=== PATIENT | female | born 1940 | race Caucasian/White ===

== ENCOUNTER → 2017-10-26 | Day surgery (SDC) | payer MEDICARE, BC, OTHER ==
[~2017-10-26] MED LIST: NS 1,000 ML IV; PROPOFOL 200 MG/20 ML VIAL As Ordered
== END | disposition home or self-care (01) ==
LOC: M OPP 07:01
DX: Z12.11 Encounter for screening for malignant neoplasm of colon (principal); D12.0 Benign neoplasm of cecum; K57.30 Diverticulosis of large intestine without perforation or abscess without bleeding; K21.9 Gastro-esophageal reflux disease without esophagitis; M19.90 Unspecified osteoarthritis, unspecified site; H40.9 Unspecified glaucoma; E66.9 Obesity, unspecified; Z78.0 Asymptomatic menopausal state; Z88.8 Allergy status to other drugs, medicaments and biological substances; Z79.82 Long term (current) use of aspirin; Z79.899 Other long term (current) drug therapy; Z83.71 Family history of colonic polyps; Z80.3 Family history of malignant neoplasm of breast
CPT/HCPCS: 45385

== ENCOUNTER 2019-02-14 06:58 | Day surgery (SDC) | payer MEDICARE, BC, OTHER ==
[~2019-02-14] VITALS: Ht 147.3 cm; Wt 68.5 kg
[~2019-02-14 06:58] MED LIST changes: +ASPI81TA26 PO; +BIMA01SOL OU; +CALC1TAB26 PO; +FISH PB; +FLUTISP; +MM S100C PO; -NS 1,000 ML IV; +NS 1,000 ML IV ONE; +OMEG1CAP16 PO; -PROPOFOL 200 MG/20 ML VIAL As Ordered; +RANI150T PO; +SYST1SOL4 OU; +SYSTSOL14 OU; +TACLOIN4 TOP; +TIMO0.5S29 OU; +VITA100067 PO; +VITA500079 PO; +[UNRECOGNIZED DRUG - OTHER] PB
[2019-02-14] MEDS ORDERED: PROPOFOL 200 MG/20 ML VIAL As Ordered ONE ×2 (08:01→08:10)
--- NOTE | 2019-02-14 08:31 | ROOR ---
Patient Name: Rebecca Blankenship Procedure Date: 02/14/2019 8:01 AM Date of : 1940 Age: 78 Room: [facility] Gender: Female Note Status: Finalized Procedure: Colonoscopy Indications: High risk colon cancer surveillance: Personal history of colonic polyps Providers: Prieto Barrios Jr, MD Referring MD: Leif Finley MD Requesting Provider: Medicines: Propofol per Anesthesia Complications: No immediate complications. Procedure: Pre-Anesthesia Assessment: - Prior to the procedure, a History and Physical was performed, and patient medications and allergies were reviewed. The patient is competent. The risks and benefits of the procedure and the sedation options and risks were discussed with the patient. All questions were answered and informed consent was obtained. Patient identification and proposed procedure were verified by the physician and the nurse in the pre-procedure area and in the procedure room. Mental Status Examination: alert and oriented. Airway Examination: normal oropharyngeal airway and neck mobility. Respiratory Examination: clear to auscultation. CV Examination: normal. ASA Grade Assessment: II - A patient with mild systemic disease. After reviewing the risks and benefits, the patient was deemed in satisfactory condition to undergo the procedure. The anesthesia plan was to use moderate sedation / analgesia (conscious sedation). Immediately prior to administration of medications, the patient was re-assessed for adequacy to receive sedatives. The heart rate, respiratory rate, oxygen saturations, blood pressure, adequacy of pulmonary ventilation, and response to care were monitored throughout the procedure. The physical status of the patient was re-assessed after the procedure. The Colonoscope was introduced through the anus and advanced to the cecum, identified by appendiceal orifice and ileocecal valve. The colonoscopy was performed without difficulty. The patient tolerated the procedure well. The quality of the bowel preparation was adequate. Findings: The rectum and transverse colon appeared normal. A few small and large-mouthed diverticula were found in the descending colon, transverse colon and ascending colon. Many small and large-mouthed diverticula were found in the sigmoid colon. A medium polyp was found in the cecum. The polyp was flat. The polyp was removed with a piecemeal technique using a cold snare. Resection was complete, but the polyp tissue was only partially retrieved. To close a defect after polypectomy, two hemostatic clips were successfully placed. There was no bleeding at the end of the procedure. Impression: - The rectum and transverse colon are normal. - Diverticulosis in the descending colon, in the transverse colon and in the ascending colon. - Diverticulosis in the sigmoid colon. - One medium polyp in the cecum, removed piecemeal using a cold snare. Complete resection. Partial retrieval. Clips were placed. Recommendation: - Discharge patient to home (ambulatory). Prieto Barrios MD Prieto Barrios Jr, MD 02/14/2019 8:31:31 AM Electronically signed by Prieto Barrios Jr, MD Number of Addenda: 0 Note Initiated On: 02/14/2019 8:01 AM Estimated Blood Loss: Estimated blood loss: none.
[2019-02-14 09:00] VITALS: BP 98/50
== END 2019-02-14 09:08 | disposition home or self-care (01) ==
LOC: M OPP 06:58
PROVIDERS: ATTEND Surgery
DX: Z86.010 Personal history of colon polyps (principal); K57.30 Diverticulosis of large intestine without perforation or abscess without bleeding; D12.0 Benign neoplasm of cecum; E78.00 Pure hypercholesterolemia, unspecified; R12 Heartburn; Z79.899 Other long term (current) drug therapy; Z88.0 Allergy status to penicillin; Z88.8 Allergy status to other drugs, medicaments and biological substances

== ENCOUNTER → 2021-04-28 | Outpatient (CLI) | payer MEDICARE, BC, OTHER ==
[~2021-04-28] MED LIST changes: -NS 1,000 ML IV ONE
--- NOTE | 2021-04-28 12:22 | REP ---
INDICATION: LT KIDNEY CYSTS. COMPARISON: 04/09/2020 which showed a 3.8 x 3.9 x 4.2 cm sized left renal cyst TECHNIQUE: Real-time sonographic evaluation of the kidneys with Doppler FINDINGS: Multiple ultrasonographic images of the right kidney show the right kidney to measure 9.6 x 4.7 x 3.7 cm. The renal cortical echotexture is unremarkable. There are no masses. There is good corticomedullary differentiation. There is no hydronephrosis. There are no perinephric fluid collections. Multiple ultrasonographic images of the left kidney show the left kidney to measure 10.9 x 5.3 x 4.7 cm. The renal cortical echotexture is unremarkable. There are no solid masses. This is seen previously today measures 4.6 x 4 x 4.3 cm. There is good corticomedullary differentiation. There is no hydronephrosis. There are no perinephric fluid collections. IMPRESSION: Left renal cyst as described above. <Electronically signed by Syed Redmond > 04/28/21 [id number]
== END ==
LOC: M RAD 11:06
PROVIDERS: ATTEND Family Medicine
DX: D41.02 Neoplasm of uncertain behavior of left kidney (principal)

== ENCOUNTER → 2022-05-06 | Outpatient (CLI) | payer MEDICARE, BC, OTHER | LOC: M WUC 08:38 | PROVIDERS: ATTEND Student in an Organized Health Care Education/Training Program | DX: M25.571 Pain in right ankle and joints of right foot (principal); M77.31 Calcaneal spur, right foot ==

== ENCOUNTER → 2022-06-19 | Outpatient (CLI) | payer MEDICARE, BC, OTHER ==
[~2022-06-19] MED LIST changes: +ALLE24TA7 PO; +MELO7.5T35 PO; +VIT1TAB.8 PO; +VITA500054 PO; +VITA500C24 PO
== END ==
LOC: M LABSMTC 09:25
PROVIDERS: ATTEND Anesthesiology
DX: Z01.812 Encounter for preprocedural laboratory examination (principal); Z11.52 Encounter for screening for COVID-19

== ENCOUNTER 2022-06-23 06:41 | Day surgery (SDC) | payer MEDICARE, BC, OTHER ==
[~2022-06-23] VITALS: Ht 147.3 cm; Wt 64.9 kg
[~2022-06-23 06:41] MED LIST changes: +NS 1,000 ML IV ONE
[2022-06-23] MEDS ORDERED: propofoL 200 MG/20 ML VIAL As Ordered ONE ×2 (06:59→07:49)
[2022-06-23] MEDS ORDERED: ePHEDrine SULFATE 25 MG/5 ML(5MG/ML) SYRINGE As Ordered ONE (07:49)
[2022-06-23 08:25] VITALS: BP 102/55
== END 2022-06-23 08:24 | disposition home or self-care (01) ==
LOC: M OPP 06:41
PROVIDERS: ATTEND Surgery
DX: Z86.010 Personal history of colon polyps (principal); D12.6 Benign neoplasm of colon, unspecified; K57.30 Diverticulosis of large intestine without perforation or abscess without bleeding; Z79.52 Long term (current) use of systemic steroids; Z79.899 Other long term (current) drug therapy; Z88.0 Allergy status to penicillin; Z88.2 Allergy status to sulfonamides; E78.5 Hyperlipidemia, unspecified

== ENCOUNTER → 2023-03-06 | Outpatient (CLI) | payer MEDICARE, BC, OTHER ==
[~2023-03-06] MED LIST changes: +FLUT50SP17; -FLUTISP; -NS 1,000 ML IV ONE; +TIMO0.5S20 OU; -TIMO0.5S29 OU
== END ==
LOC: M RAD 08:47
PROVIDERS: ATTEND Family Medicine
DX: R10.11 Right upper quadrant pain (principal)

== ENCOUNTER → 2023-12-13 | Outpatient (CLI) | payer MEDICARE, BC ==
[~2023-12-13] MED LIST changes: -FLUT50SP17; +FLUTISP
== END ==
LOC: M PLAIMG 07:37
PROVIDERS: ATTEND Family Medicine
DX: R01.1 Cardiac murmur, unspecified (principal); I08.3 Combined rheumatic disorders of mitral, aortic and tricuspid valves

== ENCOUNTER → 2024-09-23 | Outpatient (REF) | payer MEDICARE, BC ==
[2024-09-27 21:17] LABS: FACTOR V111 ACTIVITY, CLOTTING 105 % normal (50-180); FACTOR VIII APTT 27 sec (23-32); RISTOCETIN COFACTOR 143 % normal (42-200); VW FACTOR ANTIGEN 115 % (50-217)
== END ==
LOC: M LAB REF 11:57
PROVIDERS: ATTEND Family Medicine
DX: D68.00 Von Willebrand disease, unspecified (principal)

== ENCOUNTER → 2025-02-27 | Outpatient (CLI) | payer MEDICARE, BC ==
[2025-02-27 14:57] LABS: BASO # 0.1 10^3/uL (0.0-0.2); BASO % 0.9 % (0.0-1.0); EOS # 0.3 10^3/uL (0.0-0.5); EOS % 3.4 % (0.0-3.0); LYMPH # 1.6 10^3/uL (1.5-5.0); LYMPH % 19.3 % (24.0-44.0); MONO # 0.5 10^3/uL (0.0-0.8); MONO % 5.7 % (2.0-8.0); NEUTROPHILS # 5.7 10^3/uL (1.5-8.5); NEUTROPHILS % 70.3 % (36.0-66.0); PLATELET COUNT, AUTOMATED 275 10^3/uL (150-450)
[2025-02-27 15:04] LABS: CALCIUM LEVEL 9.0 MG/DL (8.3-10.6); CARBON DIOXIDE LEVEL 29.0 MMOL/L (20-31); CHLORIDE LEVEL 102.0 MMOL/L (98-107); CREATININE FOR GFR 0.78 MG/DL (0.55-1.30); GLOMERULAR FILTRATION RATE 75.8 (>32); POTASSIUM SERUM 4.6 MMOL/L (3.5-5.1); SODIUM LEVEL 141.0 MMOL/L (136-145)
== END ==
LOC: M WUC 11:23
PROVIDERS: ATTEND Internal Medicine Cardiovascular Disease
DX: I48.0 Paroxysmal atrial fibrillation (principal); I50.9 Heart failure, unspecified